=== PATIENT | female | born 1975 | race Caucasian/White ===

== ENCOUNTER 2017-05-31 15:34 | Emergency (ER) | payer SELFPAY, MEDICAID | END 2017-05-31 16:40 | disposition home or self-care (01) | LOC: E/R 16:40 | DX: J20.9 Acute bronchitis, unspecified (principal) | CPT/HCPCS: 99284 ==

== ENCOUNTER 2017-11-27 14:18 | Emergency (ER) | payer MEDICAID ==
[2017-11-27] MEDS: DIAZEPAM 5 MG TAB PO (15:10)
[2017-11-27] MEDS ORDERED: NAPROXEN 500 MG TAB PO (15:38)
[2017-11-27] MEDS: IBUPROFEN 800 MG TAB PO (15:49)
== END 2017-11-27 15:53 | disposition home or self-care (01) ==
LOC: FTE 14:18
DX: S09.90XA Unspecified injury of head, initial encounter (principal); S89.91XA Unspecified injury of right lower leg, initial encounter; R07.89 Other chest pain; R51 Headache; V89.2XXA Person injured in unspecified motor-vehicle accident, traffic, initial encounter
CPT/HCPCS: 70450; 71046; 73562; 81025; 99284-25